=== PATIENT | female | born 1965 | race Caucasian/White ===

== ENCOUNTER 2017-01-05 05:30 | Inpatient (IN) | payer BC ==
[2017-01-02 09:40] VITALS: BMI 27.9
[2017-01-05] VITALS (19 sets, daily range): BP systolic 111–153; BP diastolic 60–77; PULSE 60–80; RESP 10–19; Ht 162.6 cm; Wt 74.6 kg
[~2017-01-05] VITALS: Ht 162.6 cm; Wt 74.6 kg
[2017-01-05] MEDS ORDERED: MELO7.5O PO (06:24)
[2017-01-05] MEDS ORDERED: ROPIVACAINE 0.5 % 30 ML VIAL ONE ×2 (06:40→06:56)
[2017-01-05] MEDS ORDERED: GELATIN SIZE 100 SPONGE ONE (06:40)
[2017-01-05] MEDS ORDERED: THROMBIN 5000 UNIT VIAL ONE (06:41)
[2017-01-05] MEDS ORDERED: POVIDONE IODINE 10% 28.4 GM OINT ONE (06:41)
[2017-01-05] MEDS ORDERED: POLYMYXIN/BACITRACIN 1L IRRIG ONE ×2 (06:41→10:20)
[2017-01-05] MEDS ORDERED: FENTAnyl 50 MCG/ML VIAL ONE (06:56)
[2017-01-05] MEDS ORDERED: BUPIVACAINE 0.25%/EPI (SDV) 30 ML INJ ONE (06:56)
[2017-01-05] MEDS ORDERED: MIDAZOLAM 1 MG/ML 2 ML INJ ONE (06:56)
[2017-01-05] MEDS ORDERED: CEFAZOLIN 1 GM INJ ONE (07:00)
--- NOTE | 2017-01-05 07:06 | HPN ---
Date/Time of Note Date/Time of Note DATE: 01/05/17 TIME: 07:06 Interval H&P Admission Note Pt. seen H&P reviewed: No system changes NELSON BURGESS MD Jan 05, 2017 07:06
[2017-01-05] MEDS ORDERED: morphine 10 MG INJ IV PRN (07:30)
[2017-01-05] MEDS ORDERED: DIPHENHYDRAMINE 25 MG CAP PO PRN (07:30)
[2017-01-05] MEDS ORDERED: HYDROmorphONE 0.2 MG/ML PCA IV SCH (07:30)
[2017-01-05] MEDS ORDERED: BISACODYL 10 MG SUPP PR PRN (07:30)
[2017-01-05] MEDS ORDERED: CEFAZOLIN 1 GM INJ IV SCH (07:30)
[2017-01-05] MEDS ORDERED: ONDANSETRON 4 MG INJ IV PRN ×2 (07:30→08:00)
[2017-01-05] MEDS: CEFAZOLIN 1 GM/50 ML (PMX) 50 ML IVPB SCH ×3 (07:30→21:03)
[2017-01-05] MEDS ORDERED: morphine 10 MG INJ ONE (07:39)
[2017-01-05] MEDS ORDERED: FENTAnyl 50 MCG/ML VIAL IV PRN (08:00)
[2017-01-05] MEDS ORDERED: MEPERIDINE 25 MG INJ IV PRN (08:00)
[2017-01-05] MEDS ORDERED: DIPHENHYDRAMINE 50 MG INJ IV PRN (08:00)
[2017-01-05] MEDS ORDERED: HYDROmorphONE (0.2 MG/ML) 10ML SYG IV PRN ×2 (08:00)
[2017-01-05] MEDS ORDERED: NALOXONE (0.4 MG/ML) INJ IV PRN (08:00)
[2017-01-05] MEDS: SENNA/DOCUSATE NA (8.6MG/50MG) TAB PO SCH ×2 (09:00→21:03)
[2017-01-05] MEDS ORDERED: ROCURONIUM 50 MG INJ ONE (10:49)
[2017-01-05] MEDS ORDERED: LIDOCAINE 2% (SDV) 5 ML INJ ONE (10:49)
[2017-01-05] MEDS ORDERED: PROPOFOL 20 ML ONE (10:49)
[2017-01-05] MEDS ORDERED: ONDANSETRON 4 MG INJ ONE (11:28)
[2017-01-05] MEDS: HYDROmorphONE 0.2 MG/ML PCA IV SCH (12:45)
[2017-01-05] MEDS: SOD CHLORIDE 0.9% 1,000 ML IV SCH ×2 (15:41→17:23)
[2017-01-05] MEDS: OXYCODONE/ACETAMINOPHEN (5/325) TAB PO PRN (15:41)
--- NOTE | 2017-01-05 16:48 | RADRPT ---
PROCEDURE: Intraoperative imaging of the left foot with fluoroscopy. CLINICAL INDICATION: Left foot pain. Intraoperative. TECHNIQUE: 7 images of the left foot were obtained in the operating room with an image intensifier . No radiologist was in attendance. 0.2 minutes of fluoroscopy time was used. COMPARISON: No prior study is available for comparison. FINDINGS: Images demonstrate fusion of the first tarsometatarsal joint and second tarsometatarsal joint with h ardware. IMPRESSION: 1. Intraoperative imaging of the left foot. RPTAT: QQ .Codey Fenton MD, MD Date Time Electronically viewed and signed by .Codey Fenton MD, on 01/05/2017 16:48 .R/
[2017-01-05] MEDS ORDERED: METOCLOPRAMIDE 10 MG INJ IV PRN (19:00)
--- NOTE | 2017-01-05 20:47 | OPR ---
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 OPERATION PERFORMED: 1. Arthrodesis of the first metatarsocuneiform joint. 2. Arthrodesis second metatarsocuneiform joint. 3. Arthrodesis of the first and second metatarsals. 4. Arthrodesis of the medial to middle cuneiforms with a U-shaped [employer] plate. 5. Iliac crest bone graft plus augment to the arthrodesis site. 6. The use of fluoroscopy to verify position and alignment of the screws and plate. 7. A short-leg cast. Extremely complex difficult procedure because of the altered anatomy, the numerous joints that had t o be fused and the difficult access necessitating an additional 60 minutes (2200). SURGEON: Nelson Shook MD HYDROELECTRIC STATION CHIEF: Ashish Peck MD ANESTHESIA: General with popliteal block. TOURNIQUET TIME: 130 minutes. DESCRIPTION OF PROCEDURE: The patient taken to the operating room, placed in supine position. Sati sfactory popliteal block was given, satisfactory general anesthesia administered, 2 grams Ancef give n intravenously. The left lower extremity including the iliac crest was prepped and draped in the u sual manner. Sterile tourniquet was applied. Attention was turned first to the iliac crest. The skin was pulled up superiorly and incision was made over the iliac crest centrally. Dissection carried down to subcutaneous tissue. The fascia was opened in line with its fibers and then retract ed off both sides of the iliac crest. A saw was used to make 2 vertical holes and 1 longitudinal ho ld to join them. Osteotome was used to lift up the trap door. Using different angled curettes, bone graft was obtained, bone marrow aspiration was also done. After adequate amount of bone had been re moved, thrombin-soaked Gelfoam was used to control bleeding, packed in the wound and the wound was c overed with a sterile towel. Gloves were then changed. Tourniquet was inflated to 250 mmHg. The fluoroscope was brought in. We marked exactly where we wanted our incision to be. Dissection was made down through the skin and rivers bcutaneous tissue. Extreme caution was made at all times to avoid injuring neurovascular bundle. T he tendons were retracted as was the neurovascular bundle. Electrosurgery was used to peel the capsu le off the base of the 2nd metatarsocuneiform joint and then along the base of the first metatarsocu neiform joint until we could get around circumferentially. Using a laminar hairspring fabrication supervisor through each leena nt, the articular cartilage was removed with an osteotome and then a curet and all debris was remove d with a rongeur. This was done in the first and second metatarsocuneiform joints in the medial to middle cuneiform and first and second metatarsals. Sequentially then a bur was used to bur off 1 mm of bone in each joint area. A 0.045 K-wire was used to drill multiple holes to facilitate bleeding. Multiple "spot welds" were also made with the bur to facilitate healing. Once there was good bleed ing surfaces everywhere, the joints were reduced. Guide pin from the 4-0 AO cannulated screw set was used to obliquely go from the medial cuneiform in the base of first metatarsal and hold it reduced. Bone graft was then placed in the first metatarsocuneiform joint prior to reducing it with a guide pin packed in the second metatarsocuneiform joint, the medial and middle cuneiform joints and the fi rst and second metatarsal joints. The bone graft was mixed with augment to facilitate healing. The joints were then reduced with the guide pin as mentioned. After the bone had been packed tightly i nto the various joints, the U-claw plate was then applied using 3.5 screws. It was checked in the AP and lateral planes repeatedly and noted to be in excellent position. Once the plate was secure, th e plate was distracted on all 3 sides until there was good compression. The hole was then drilled m edially for the 4.0 screw and screw was inserted. Final fluoroscopic views in AP and lateral direct ions showed good position and alignment of the plate and screws. Further bone grafting was done to p ack all the joints further. Wounds irrigated with antibiotic solution. The subcutaneous tissue was closed with a few 3-0 undyed Vicryl and the skin was closed with 4-0 black nylon. The iliac crest bone was irrigated with antibiotic solution. The thrombin-soaked Gelfoam were remov ed. The fascia was closed with a running 0 PDS, subcutaneous tissue with 2-0 and 3-0 undyed Vicryl, and the skin with a running 3-0 subcuticular Prolene. Steri-Strips were applied as well as tono ok dressing. And then a compression dressing and short leg cast was applied in neutral position o n the ankle. At end of procedure, sponge and needle count was correct, the patient tolerated the pr ocedure well and the cast put in the recovery room. HYDROELECTRIC STATION CHIEF ORTHOPEDIC SURGEON: During the procedure, an trust administrative assistant orthopedic surgeon was used at my request. The trust administrative assistant helped with exposure of the Lisfranc joints. In addition, the trust administrative assistant hel ped with inserting the plate and screws while I held the joints reduced. Block Operator also helped with the bone graft. Without a skilled transition assistant being present, this could not have been done ; therefore, should be compensated appropriately. Dictated By: NELSON HOFFMANN/EBEN Conf#: [id number] DID#: [id number]
[2017-01-06] MEDS: SOD CHLORIDE 0.9% 1,000 ML IV SCH ×2 (02:49→13:23)
[2017-01-06] MEDS: OXYCODONE/ACETAMINOPHEN (5/325) TAB PO PRN ×3 (03:56→12:44)
[2017-01-06] MEDS: HYDROmorphONE 0.2 MG/ML PCA IV SCH (05:49)
[2017-01-06] MEDS: CEFAZOLIN 1 GM/50 ML (PMX) 50 ML IVPB SCH ×2 (05:50→14:30)
--- NOTE | 2017-01-06 07:29 | PN ---
Date/Time of Note Date/Time of Note DATE: 01/06/17 TIME: 07:23 Assessment/Plan VTE Prophylaxis VTE Prophylaxis Intervention: ambulation, SCD's Lines/Catheters IV Catheter Type (from Nrsg): Peripheral IV Urinary Cath still in place: No Assessment/Plan Assessment/Plan 51 y/o f POD 1 s/p left 1st and 2nd metatarsal cuneiform arthrodesis with ipsilateral iliac crest autograft - NWB LLE - Cast immobilization - elevation - Pain control with transition to oral medications as tolerated - SCD's and ambulation - PT today - DC home when pain is well controlled Subjective 24 Hr Interval Summary Free Text/Dictation Pt's block began wearing off around 4 AM. She had a bit of pain at that time which is now better controlled. she denies nausea or emesis. She has not seen PT yet. Respiratory: no complaints Cardiovascular: no complaints Gastrointestinal: no complaints Exam/Review of Systems Vital Signs Vitals Vital Signs Date Time Temp Pulse Resp B/P Pulse Ox O2 Delivery O2 Flow Rate FiO2 01/06/17 05:00 20 01/05/17 19:51 98.6 77 133/63 97 01/05/17 16:30 Room Air 01/05/17 12:05 8.0 Intake and Output 01/05/17 01/05/17 01/06/17 15:00 23:00 07:00 Intake Total 1400 ml 800 ml 480 ml Output Total 675 ml 400 ml 1400 ml Balance 725 ml 400 ml -920 ml Exam Left hip dressing is clean, dry and intact left lower extremity is in short leg cast cast is well fitting and split + toe extension and flexion sensation is intact on tips of all toes CR < 2 sec throughout foot is elevated above level of heart SCD is on contralateral calf Medications Medications Current Medications Senna/Docusate Sodium (Senokot-S) 1 tab BID PO Last administered on 01/05/17 21:03; Admin Dose 1 TAB; Start 01/05/17 at 09:00 Magnesium Hydroxide (Milk Of Mag) 30 ml HS PO ; Start 01/07/17 at 21:00 Bisacodyl 10 mg 10 mg DAILY PRN [place] CONSTIPATION; Start 01/05/17 at 07:30 Sodium Chloride (NS) 1,000 ml @ 100 mls/hr Q10H IV Last administered on 15:41; Admin Dose 100 MLS/HR; Start 01/05/17 at 07:23 Oxycodone/ Acetaminophen (Percocet (5/ 325)) 2 tab Q4H PRN PO PAIN Last administered on 01/06/17 03:56; Admin Dose 2 TAB; Start 01/05/17 at 07:30 Morphine Sulfate (morphine) 5 mg Q4H PRN IV PAIN LEVEL 7-10; Start 01/05/17 at 07:30 Ondansetron HCl (Zofran Inj) 4 mg Q4H PRN IV NAUSEA AND/OR VOMITING Last administered on 01/05/17 16:00; Admin Dose 4 MG; Start 01/05/17 at 07:30 Diphenhydramine HCl (Benadryl) 25 mg Q4H PRN PO ITCHING; Start 01/05/17 at 07: 30 Naloxone HCl (Narcan) 0.2 mg Q2M PRN IV FOR RESP RATE 8 OR LESS; Start at 08:00 Hydromorphone HCl MG/HR CONTINUOUS RATE ... Q4PCA IV Last administered on 05:49; Admin Dose 6 MG; Start 01/05/17 at 12:30; Stop 01/06/17 at 12:00 Cefazolin Sodium (Ancef 1 Gm/50 ml (Pmx)) 50 ml @ 100 mls/hr Q8 IVPB Last administered on 01/06/17 05:50; Admin Dose 100 MLS/HR; Start 01/05/17 at 07:30 ; Stop 01/06/17 at 23:31 Metoclopramide HCl (Reglan) 10 mg Q6H PRN IV NAUSEA Last administered on 19:02; Admin Dose 10 MG; Start 01/05/17 at 19:00 Oxycodone/ Acetaminophen (Percocet (5/ 325)) 1 tab Q4H PRN PO PAIN; Start 01/06 at 12:00 NELSON BURGESS MD Jan 06, 2017 07:29
[2017-01-06] MEDS: SENNA/DOCUSATE NA (8.6MG/50MG) TAB PO SCH (08:06)
[2017-01-06 08:08] VITALS: BP 108/52; RESP 18
[2017-01-06] MEDS ORDERED: OXYCODONE/ACETAMINOPHEN (5/325) TAB PO PRN (12:00)
[2017-01-06] MEDS ORDERED: RIVAROXABAN 10 MG TABLET PO SCH (17:55)
--- NOTE | 2017-01-07 07:40 | DS ---
DATE OF ADMISSION: 01/05/2017 DATE OF DISCHARGE: 01/06/2017 DISCHARGE DIAGNOSIS: Lisfranc fracture dislocation of the left foot with degenerative joint disease in the joint. SURGERY: On 01/05/2017, arthrodesis of the first and second metatarsocuneiform joints with plate an d screws and iliac crest bone graft. HISTORY OF PRESENT ILLNESS: The patient is a 51-year-old female with a history of previous injury t o her left foot. She suffered a chronic Lisfranc fracture dislocation, and is admitted now for fusi on. PAST MEDICAL HISTORY: See history and physical record. PHYSICAL EXAMINATION: Normal except the orthopedic exam which revealed pain along the Lisfranc join ts with decreased range of motion and strength. LABORATORY: Normal. Chest x-ray was clear. EKG was normal. HOSPITAL COURSE: The patient taken to the operating room and underwent above-mentioned procedure. Postoperatively, she was up ambulating nonweightbearing. She will be discharged on the first postop erative day to be followed in the office in 1 week. She was discharged on pain pills. Dictated By: NELSON BURGESS MD RF/EBEN Conf#: [id number] DID#: [id number]
[2017-01-07] MEDS ORDERED: MAGNESIUM HYDROXIDE 30ML CUP PO SCH (21:00)
== END 2017-01-06 18:10 | disposition home or self-care (01) | DRG 505 ==
LOC: SDS 05:30 → EDBD 07:00 → MS1 07:27 → SDS 07:27 → MS1 13:45
PROVIDERS: ADMIT Orthopaedic Surgery; ATTEND Orthopaedic Surgery
PROC: 0SGN04Z Fusion of Left Metatarsal-Phalangeal Joint with Internal Fixation Device, Open Approach (ICD-10-PCS; 2017-01-05)
PROC: 0QB20ZZ Excision of Right Pelvic Bone, Open Approach (ICD-10-PCS; 2017-01-05)
PROC: 0QB30ZZ Excision of Left Pelvic Bone, Open Approach (ICD-10-PCS; 2017-01-05)
PROC: 0SGN07Z Fusion of Left Metatarsal-Phalangeal Joint with Autologous Tissue Substitute, Open Approach (ICD-10-PCS; principal; 2017-01-05 07:00)
DX: S92.312G Displaced fracture of first metatarsal bone, left foot, subsequent encounter for fracture with delayed healing (principal); Z87.828 Personal history of other (healed) physical injury and trauma; S92.322G Displaced fracture of second metatarsal bone, left foot, subsequent encounter for fracture with delayed healing
CPT/HCPCS: 97116; 97163; 97530; A4310; C1713; J0690; J1170; J2250; J2270; J2405; J2765; J2795; J3010; J7030